=== PATIENT | female | born 1965 | race Caucasian/White ===

== ENCOUNTER → 2017-06-15 | Outpatient (CLI) | payer BC ==
--- NOTE | 2017-06-17 07:15 | MM ---
Reason for exam: screening (asymptomatic). Last mammogram was performed 1 year and 11 months ago. Physical Findings: A clinical breast exam by your physician is recommended on an annual basis and results should be correlated with mammographic findings. MG Screening Mammo w CAD Bilateral CC and MLO view(s) were taken. Prior study comparison: July 15, 2015, bilateral MG screening mammo w CAD. July 12, 2014, bilateral MG screening mammo w CAD. There are scattered fibroglandular densities. There is chronic nodularity in the left breast. No significant changes when compared with prior studies. ASSESSMENT: Negative, BI-RAD 1 RECOMMENDATION: Routine screening mammogram of both breasts in 1 year.
== END ==
LOC: RADMAMWWP 08:27
PROVIDERS: ATTEND Obstetrics & Gynecology
DX: Z12.31 Encounter for screening mammogram for malignant neoplasm of breast (principal); Z80.3 Family history of malignant neoplasm of breast

== ENCOUNTER 2017-07-01 08:22 | Day surgery (SDC) | payer BC ==
[2017-06-29 14:34] VITALS: BMI 33.3
[~2017-07-01 08:22] MED LIST: LACTATED RINGERS 1,000 ML IV SCH
[2017-07-01 08:54] VITALS: TEMP 97.9
[2017-07-01] MEDS ORDERED: LIDOCAINE 1% 20 ML VIAL (10MG/ML) FOR IV START INTRADERMA ONE (09:02)
[2017-07-01] MEDS ORDERED: PROPOFOL 10 MG/ML 20 ML VIAL IV ONE (09:25)
[2017-07-01] MEDS ORDERED: LIDOCAINE 1% INJ 10MG/ML (20 ML MDV) ONE (09:25)
--- NOTE | 2017-07-01 09:51 | P.PCN ---
Date of Procedure: 07/01/17 Procedure(s) Performed: BRIEF HISTORY: Patient is a 52-year-old pleasant white female, scheduled for an elective colonoscopy as a part of screening for colonic neoplasia. PROCEDURE PERFORMED: Colonoscopy with snare polypectomy. PREOPERATIVE DIAGNOSIS: Screening For colon cancer. IV sedation per Anesthesia. PROCEDURE: After informed consent was obtained, the patient, was brought into the endoscopy unit. IV sedation was administered by Anesthesia under continuous monitoring. Digital rectal examination was normal. Initially the Olympus CF- 160 flexible video colonoscope was then inserted in the rectum, gradually advanced into the cecum without any difficulty. Careful examination was performed as the scope was gradually being withdrawn. Ileocecal valve and the appendiceal orifice were visualized and appeared normal. Prep was excellent. Mucosa of the cecum, appeared normal. In the base of the cecum reveals a 5 mm and 7 mm polyp removed by snare polypectomy. In the ascending colon there was a 1 cm sessile polyp removed by snare polypectomy. The rest of the ascending colon, transverse colon, descending colon, sigmoid colon, and rectum appeared normal. In the proximal rectum there was a 5 mm sessile polyp removed by snare polypectomy. Retroflexion was performed in the rectum and no lesions were seen. The patient tolerated the procedure well. IMPRESSION: 5 mm and 7 mm cecal polyp status post polypectomy 1 m flat ascending colon polyp serous was snare polypectomy 5 mm proximal rectal polyp serous was snare polypectomy RECOMMENDATIONS: Findings of this examination were discussed with the patient as well as his family. She was advised to follow with the biopsy results. If the biopsy shows a tubular adenoma, she can have a repeat colonoscopy in 3-5 years.
[2017-07-01 10:06] VITALS: BP 123/78; PULSE 69; RESP 18
== END 2017-07-01 10:34 | disposition home or self-care (01) ==
LOC: ORWHC2ENDO 08:22
PROVIDERS: ATTEND Internal Medicine Gastroenterology
DX: Z12.11 Encounter for screening for malignant neoplasm of colon (principal); D12.2 Benign neoplasm of ascending colon; D12.0 Benign neoplasm of cecum; K62.1 Rectal polyp; Z79.1 Long term (current) use of non-steroidal anti-inflammatories (NSAID); Z79.899 Other long term (current) drug therapy
CPT/HCPCS: 81025; 88305; 45385; J2001; J2704

== ENCOUNTER → 2019-09-21 | Outpatient (CLI) | payer BC ==
[2019-09-21 17:06] LABS: Chol/HDL Ratio 3.98; LDL Cholesterol,Calculated 109.8 mg/dL (0.0-131.0); VLDL Calculation 30.2 mg/dL (5.00-40.00)
== END | disposition home or self-care (01) ==
LOC: LABWHC1 10:06
PROVIDERS: ATTEND Internal Medicine Cardiovascular Disease
DX: E78.5 Hyperlipidemia, unspecified (principal)
CPT/HCPCS: 36415; 80061; 83721

== ENCOUNTER → 2020-06-27 | Outpatient (CLI) | payer BC ==
--- NOTE | 2020-07-01 08:35 | MM ---
Reason for exam: screening (asymptomatic). Last mammogram was performed 3 years ago. History: Patient is postmenopausal. Physical Findings: A clinical breast exam by your physician is recommended on an annual basis and results should be correlated with mammographic findings. MG 3D Screening Mammo W/Cad Bilateral CC and MLO view(s) were taken. Prior study comparison: June 15, 2017, bilateral MG screening mammo w CAD. July 15, 2015, bilateral MG screening mammo w CAD. There are scattered fibroglandular densities. Finding: There is a circumscribed round mass located 13 cm from the nipple in the upper outer quadrant, middle position of the left breast. Increase in size since June 15, 2017 and July 15, 2015. ASSESSMENT: Incomplete: need additional imaging evaluation, BI-RAD 0 RECOMMENDATION: Ultrasound of the left breast. [facility] will attempt to contact patient to return for ultrasound.
== END | disposition home or self-care (01) ==
LOC: RADMAMWWP 11:28
PROVIDERS: ATTEND Family Medicine
DX: Z12.31 Encounter for screening mammogram for malignant neoplasm of breast (principal)
CPT/HCPCS: 77063; 77067

== ENCOUNTER → 2020-07-05 | Outpatient (CLI) | payer BC ==
--- NOTE | 2020-07-09 11:24 | USB ---
Reason for exam: additional evaluation requested from abnormal screening. History: Patient is postmenopausal. Physical Findings: Nurse did not find any significant physical abnormalities on exam. US Breast Workup Limited LT Left limited breast ultrasound including focal area of concern, retroareolar and axilla demonstrates a 0.6 x 0.7 x 0.5cm oval, solid, hyperechoic, benign lesion at 2 o'clock, a 0.7 x 0.4 x 0.6cm intrammary node corresponding to mammogram at 2 o'clock and a 1.2 x 1.4 x 0.9cm oval, lymph node at the axilla, prominent nut nonenlarged. These results were verbally communicated with the patient and result sheet given to the patient on 07/05/20. ASSESSMENT: Benign, BI-RAD 2 RECOMMENDATION: Return to routine screening mammogram schedule for both breasts.
== END | disposition home or self-care (01) ==
LOC: RADUSWWP 10:13
PROVIDERS: ATTEND Family Medicine
DX: R92.8 Other abnormal and inconclusive findings on diagnostic imaging of breast (principal)

== ENCOUNTER 2021-01-29 09:41 | Day surgery (SDC) | payer BC ==
[2021-01-27 09:34] VITALS: BMI 31.8
[2021-01-29 10:21] VITALS: RESP 16; TEMP 98
[2021-01-29] MEDS ORDERED: LIDOCAINE 1% (10MG/ML) FOR IV START INTRADERMA ONE (10:27)
[2021-01-29] MEDS: LACTATED RINGERS 1,000 ML IV SCH ×2 (10:28→10:53)
[2021-01-29] MEDS ORDERED: PROPOFOL 10 MG/ML 20 ML VIAL IV ONE (10:54)
--- NOTE | 2021-01-29 11:17 | P.PCN ---
Date of Procedure: 01/29/21 Procedure(s) Performed: BRIEF HISTORY: Patient is a 55-year-old pleasant white female scheduled for an elective colonoscopy as a part of evaluation of prior history of colon polyps. Her last coloscopy was 3 years ago. PROCEDURE PERFORMED: Colonoscopy with biopsy. PREOPERATIVE DIAGNOSIS: History of colon polyps. IV sedation per Anesthesia. PROCEDURE: After informed consent was obtained, the patient, was brought into the endoscopy unit. IV sedation was administered by Anesthesia under continuous monitoring. Digital rectal examination was normal. Initially the Olympus CF-160 flexible video colonoscope was then inserted in the rectum, gradually advanced into the cecum without any difficulty. Careful examination was performed as the scope was gradually being withdrawn. Ileocecal valve and the appendiceal orifice were visualized and appeared normal. Prep was excellent. Mucosa of the cecum, a scending colon, transverse colon, appeared normal. There was a 2 mm polyp noted in the descending colon that was removed by cold biopsy. Rest of the descending colon, sigmoid colon, and rectum appeared normal. Retroflexion was performed in the rectum and no lesions were seen. The patient tolerated the procedure well. IMPRESSION: 2 mm polyp in the descending colon status post removal by cold biopsy Rest of the colon appeared normal RECOMMENDATIONS: Findings of this examination were discussed with the patient as well as a family. She was advised to follow with the biopsy doesn't have a r epeat surveillance colonoscopy in 5 years..
[2021-01-29 11:43] VITALS: BP 144/72; PULSE 67
== END 2021-01-29 12:09 ==
LOC: ORWHC2ENDO 09:41
PROVIDERS: ATTEND Internal Medicine Gastroenterology
DX: K63.5 Polyp of colon (principal); Z12.11 Encounter for screening for malignant neoplasm of colon; Z86.010 Personal history of colon polyps
CPT/HCPCS: 88305; 45380; J2704

== ENCOUNTER → 2021-04-30 | Outpatient (CLI) | payer BC ==
--- NOTE | 2021-04-30 21:46 | CT ---
EXAMINATION TYPE: CT abdomen w con DATE OF EXAM: 04/30/2021 COMPARISON: None HISTORY: abdominal pain, hernia CT DLP: 983 mGycm Automated exposure control for dose reduction was used. TECHNIQUE: Helical acquisition of images was performed from the lung bases through the top of iliac crest to include entire abdomen. CONTRAST: Performed with Oral Contrast and with IV Contrast, patient injected with 100 mL of Isovue 300. FINDINGS: LUNG BASES: No significant abnormality is appreciated. LIVER/GB: Hepatic steatosis. The gallbladder is unremarkable. The common duct is upper limit of jammie l for size measuring 6 mm. PANCREAS: No significant abnormality is seen. SPLEEN: Nonenlarged. Splenic granulomata. ADRENALS: No significant abnormality is seen. KIDNEYS: Punctate hyperdensity in the interpolar right kidney could represent a tiny nonobstructing s tone or a calcification. No hydronephrosis. BOWEL: Nonenlarged large bowel. No wall thickening or pericholecystic fat stranding. The appendix is unremarkable. LYMPH NODES: No significant abnormality is seen. OSSEOUS STRUCTURES: No significant abnormality is seen. FREE AIR: No free air is visualized. OTHER: None IMPRESSION: 1. Hepatic steatosis. 2. The common duct is upper limit of normal for size measuring 6 mm. Correlate with ultrasound.
== END | disposition home or self-care (01) ==
LOC: RADCTMAIN 16:21
PROVIDERS: ATTEND Family Medicine
DX: K76.0 Fatty (change of) liver, not elsewhere classified (principal); K44.9 Diaphragmatic hernia without obstruction or gangrene
CPT/HCPCS: 74160; Q9967

== ENCOUNTER → 2021-08-01 | Outpatient (CLI) | payer BC ==
--- NOTE | 2021-08-04 20:40 | BD ---
EXAMINATION TYPE: Axial Bone Density DATE OF EXAM: 08/01/2021 COMPARISON: NONE CLINICAL HISTORY: 56 YR OLD FEMALE.....ICD-10 CODE: MENOPAUSAL Height: 63.8 Weight: 195 FRAX RISK QUESTIONS: NOTHING TO NOTE HERE RISK FACTORS HISTORY OF: INJECTIONS INTO LOWER BACK ONLY Family History of Osteoporosis: YES, MOTHER, NO HIP FX Postmenopausal woman: YES, AT AGE 49 YRS OLD Hyperparathyroidism: NO Adrenal Insufficiency: NO MEDICATIONS: Additional Medications: VIT D AND VIT C, WITH MULTIVITAMIN Additional History: RECENT CARPAL TUNNEL SURGERY EXAM MEASUREMENTS: Bone mineral densitometry was performed using the [employer]. Bone mineral density as measured about the Lumbar spine is: ----- L1-L4(G/cm2): 1.076 T Score Values are as follows: ----- L1: -1.2 ----- L2: -1.2 ----- L3: -0.9 ----- L4: -0.4 ----- L1-L4: -0.9 Bone mineral density FIRST DEXA STUDY........BASELINE Bone mineral density about the R hip (g/cm2): 1.208 Bone mineral density about the L hip (g/cm2): 1.264 T Score values are as follows: -----R Neck: 0.3 -----L Neck: 0.3 -----R Total: 1.6 -----L Total: 2.0 Bone mineral density BASELINE STUDY FRAX%s: THERE IS A 4.6% CHANCE FOR A MAJOR OSTEOPOROTIC FX AND A 0.1% FOR HIPS.....PROBABILITY FO R FX IN 10 YRS TIME IMPRESSION: Normal (Values between +1 and -1 indicate normal bone mass). Consider repeating this study in 5 year s or sooner if there is some new clinical indication. NOTE: T-SCORE=SD OF THE YOUNG ADULT MEAN.
== END | disposition home or self-care (01) ==
LOC: RADBDWWP 16:14
PROVIDERS: ATTEND Family Medicine
DX: M85.88 Other specified disorders of bone density and structure, other site (principal); Z78.0 Asymptomatic menopausal state
CPT/HCPCS: 77080

== ENCOUNTER → 2021-08-08 | Outpatient (CLI) | payer BC ==
--- NOTE | 2021-08-11 12:49 | MM ---
Reason for exam: screening (asymptomatic). Last mammogram was performed 1 year and 1 month ago. History: Patient is postmenopausal. Physical Findings: A clinical breast exam by your physician is recommended on an annual basis and results should be correlated with mammographic findings. MG Screening Mammo w CAD Bilateral CC and MLO view(s) were taken. Prior study comparison: June 27, 2020, bilateral MG 3d screening mammo w/cad. June 15, 2017, bilateral MG screening mammo w CAD. The breast tissue is heterogeneously dense. This may lower the sensitivity of mammography. There is no discrete abnormality. No significant changes when compared with prior studies. ASSESSMENT: Negative, BI-RAD 1 RECOMMENDATION: Routine screening mammogram of both breasts in 1 year.
== END | disposition home or self-care (01) ==
LOC: RADMAMWWP 15:13
PROVIDERS: ATTEND Family Medicine
DX: Z12.31 Encounter for screening mammogram for malignant neoplasm of breast (principal); Z78.0 Asymptomatic menopausal state
CPT/HCPCS: 77067

== ENCOUNTER → 2021-12-23 | Outpatient (CLI) | payer BC ==
--- NOTE | 2021-12-23 22:21 | CT ---
EXAMINATION TYPE: CT facial bones wo/w con DATE OF EXAM: 12/23/2021 COMPARISON: CT dated 06/16/2014 HISTORY: Dental abscess since 2021 CT DLP: 1289.6 mGycm Automated exposure control for dose reduction was used. CONTRAST: CT scan of the facial bones is performed without and with IV Contrast, patient injected with 100ml mL of Isovue 300. TECHNIQUE: CT scan of the sinuses is performed without contrast, axial images are obtained, coronal r eformatted images are also reviewed. FINDINGS: Artifacts from dental work. No definite abscess formation identified adjacent to the mandible. Previo us extraction of the left inferior wisdom tooth with expected lucency within the bone at that locatio n. No evidence of bone destruction or signs of osteomyelitis. Prominent bilateral upper cervical and submandibular subcentimeter lymph nodes, nonspecific. Symmetrical unremarkable parotid and submandibular salivary glands. Unremarkable nasopharynx, orophar ynx and hypopharynx. No gross tongue base or floor of the mouth abnormality. Deviated bony nasal sept um convex to the right side. Paradoxical middle turbinates. Clear visualized paranasal sinuses and ma stoid air cells. Unremarkable visualized portion of the brain and orbits. Multilevel upper cervical f acet osteoarthropathy IMPRESSION: Left mandibular lucency at the expected location of extracted left wisdom tooth. No definite adjacent abscess formation, obvious soft tissue swelling, bone destruction or gross signs of acute osteomyeli tis with the limitation of the artifacts from the dental work. Small focus of infection or abscess formation at that location cannot be excluded. Recommend clinical correlation/direct visualization. Further bone scan assessment can be considered if clinically requi red. Other incidental findings as described above.
== END | disposition home or self-care (01) ==
LOC: RADCTMAIN 18:47
PROVIDERS: ATTEND Family Medicine
DX: R93.0 Abnormal findings on diagnostic imaging of skull and head, not elsewhere classified (principal)
CPT/HCPCS: 70488; Q9967

== ENCOUNTER → 2022-02-27 | Outpatient (CLI) | payer BC ==
--- NOTE | 2022-02-28 05:18 | MR ---
EXAMINATION TYPE: MR brain and iac wo/w con DATE OF EXAM: 02/27/2022 COMPARISON: None HISTORY: Trigeminal neuralgia, jaw/facial pain for 6 months after surgery on left bottom molar. CONTRAST: Standard multiplanar, multisequence MRI departmental protocol images were obtained without contrast a nd with 9 mL intravenous Gadavist gadolinium contrast. Diffusion images show no sign of an acute infarct. Ventricles have fairly normal size. There is no ma ss effect or midline shift. No sign of intracranial hemorrhage. Chandra and white matter structures over all fairly normal signal pattern. No evidence of any significant edema. The brainstem is intact. Willis us callosum is intact. Sella turcica appears normal. No evidence of orbital mass. There are a few sca ttered white matter peripheral high signal tiny foci mainly in the left humeral hemisphere that are m easuring up to 4 mm. Portal numbers less than 10. There is no evidence of posterior fossa mass. The internal auditory canals appear normal. Acoustic ne rve and vestibular nerve appear normal. There is no pathologic enhancement in the posterior fossa. There is normal enhancement of the venous sinuses. No pathologic intracranial enhancement. IMPRESSION: Normal MR scan of the posterior fossa. There are a few scattered tiny high signal white matter foci of uncertain and doubtful significance. No evidence of cortical infarct.
== END | disposition home or self-care (01) ==
LOC: RADMRIMAIN 18:27
PROVIDERS: ATTEND Psychiatry & Neurology Neurology
DX: G50.0 Trigeminal neuralgia (principal)
CPT/HCPCS: 70553; A9585

== ENCOUNTER → 2022-08-10 | Outpatient (CLI) | payer BC ==
--- NOTE | 2022-08-11 19:07 | MM ---
Reason for Exam: Screening (asymptomatic). Last screening mammogram was performed 12 month(s) ago. Patient History: Menarche at age 13. First Full-Term at age 22. Postmenopausal. Risk Values: Sheila 5 year model risk: 1.1%. NCI Lifetime model risk: 7.2%. Prior Study Comparison: 06/15/2017 Bilateral Screening Mammogram, [facility]. 06/27/2020 Bilateral Screening Mammogram, [facility]. 08/08/2021 Bilateral Screening Mammogram, [facility]. Tissue Density: There are scattered fibroglandular densities. Findings: Analyzed By CAD. There is a chronic nodularity within the upper outer aspect left breast stable from comparison. Stable nodularities in the posterior right breast. No significant interval changes. No suspicious groups of microcalcifications, spiculated or lobular masses, architectural distortion or other secondary signs of malignancy are mammographically apparent. Overall Assessment: Benign, BI-RAD 2 Management: Screening Mammogram of both breasts in 1 year. A negative mammogram report should not preclude additional follow up of suspicious palpable abnormalities. Patient should continue monthly self breast exam. A clinical breast exam by your physician is recommended on an annual basis and results should be correlated with mammographic findings. Electronically signed and approved by: Gustavo Pinto D.O. Radiologis
== END | disposition home or self-care (01) ==
LOC: RADMAMWWP 15:45
PROVIDERS: ATTEND Family Medicine
DX: Z12.31 Encounter for screening mammogram for malignant neoplasm of breast (principal); Z78.0 Asymptomatic menopausal state
CPT/HCPCS: 77067

== ENCOUNTER → 2023-07-29 | Outpatient (CLI) | payer BC | END | disposition home or self-care (01) | LOC: LABWHC1 14:08 | PROVIDERS: ATTEND Family Medicine | DX: G50.0 Trigeminal neuralgia (principal); K13.79 Other lesions of oral mucosa; R19.7 Diarrhea, unspecified; Z86.19 Personal history of other infectious and parasitic diseases | CPT/HCPCS: 87324 ==

== ENCOUNTER → 2023-08-27 | Outpatient (CLI) | payer BC ==
--- NOTE | 2023-08-31 21:20 | MM ---
Reason for Exam: Screening (asymptomatic). Last mammogram was performed 1 year(s) and 1 month(s) ago. Patient History: Menarche at age 13. First Full-Term at age 22. Postmenopausal. Risk Values: Sheila 5 year model risk: 1.1%. NCI Lifetime model risk: 7.1%. Prior Study Comparison: 06/27/2020 Bilateral Screening Mammogram, [facility]. 08/08/2021 Bilateral Screening Mammogram, [facility]. 08/10/2022 Bilateral MG screening mammo w CAD, [facility]. Tissue Density: There are scattered fibroglandular densities. Findings: Analyzed By CAD. Chronic bilateral nodularity. Unchanged global asymmetry on the right. There is no suspicious group of microcalcifications or new suspicious mass in either breast. Overall Assessment: Benign, BI-RAD 2 Management: Screening Mammogram of both breasts in 1 year. . Patient should continue monthly self-breast exams. A clinical breast exam by your physician is recommended on an annual basis. This exam should not preclude additional follow-up of suspicious palpable abnormalities. Note on Sheila scores and lifetime risk: 1. A Sheila score greater than 3% is considered moderate risk. If this is the case, consider specialist referral to assess eligibility for a risk reducing agent. 2. If overall lifetime risk for the development of breast cancer is 20% or higher, the patient may qualify for future screening with alternating mammogram and breast MRI. Electronically signed and approved by: Anca Garcia M.D. Radiologist
== END | disposition home or self-care (01) ==
LOC: RADMAMWWP 16:21
PROVIDERS: ATTEND Family Medicine
DX: Z12.31 Encounter for screening mammogram for malignant neoplasm of breast (principal); Z78.0 Asymptomatic menopausal state
CPT/HCPCS: 77067

== ENCOUNTER → 2023-09-09 | Outpatient (CLI) | payer BC ==
--- NOTE | 2023-09-11 18:39 | US ---
EXAMINATION TYPE: US abdomen complete DATE OF EXAM: 09/09/2023 COMPARISON: 04/30/2021 CLINICAL INDICATION: Female, 58 years old with history of R10.12 Left upper quadrant pain; Burning pa in LUQ TECHNIQUE: Multiple sonographic images of the abdomen are obtained. FINDINGS: EXAM MEASUREMENTS: Liver Length: 16.2 cm Gallbladder Wall: 0.2 cm CBD: 0.9 cm Spleen: 9.0 cm Right Kidney: 10.3 x 3.9 x 4.2 cm Left Kidney: 12.0 x 5.1 x 4.1 cm GENERATOR ASSEMBLER NOTES: Technical limitations due to large amount of overlying bowel gas Pancreas: head appears slightly heterogenous. Tail obscured by overlying bowel gas Liver: attenuating, heterogeneous Gallbladder: no evidence of stones Evidence for sonographic Jin's sign: no CBD: dilated Spleen: granulomas Right Kidney: no evidence of hydronephrosis Left Kidney: lobulated contour, no evidence of hydronephrosis Upper IVC: wnl Abd Aorta: wnl The liver is homogenous increased echotexture. The intrahepatic portion of the IVC and proximal abdo flores aorta are within normal limits. There is no evidence of cholelithiasis. Common bile duct is u nremarkable. The visualized portions of the pancreas are homogenous. The spleen is unremarkable. K idneys are symmetric and free of hydronephrosis. No renal lesions are seen. IMPRESSION: Steatosis. No evidence for acute process.
== END | disposition home or self-care (01) ==
LOC: RADUSWWP 07:34
PROVIDERS: ATTEND Family Medicine
DX: R10.12 Left upper quadrant pain (principal); K76.0 Fatty (change of) liver, not elsewhere classified
CPT/HCPCS: 76700

== ENCOUNTER 2023-12-15 07:15 | Day surgery (SDC) | payer BC ==
[2023-12-13 09:06] VITALS: BMI 32.8
[~2023-12-15 07:15] MED LIST changes: +LIDOCAINE 1% (10MG/ML) FOR IV START INTRADERMA PRN
[2023-12-15] MEDS: LACTATED RINGERS 1,000 ML IV ONE (07:41)
[2023-12-15 08:33] VITALS: RESP 16; TEMP 97.8
[2023-12-15] MEDS ORDERED: PROPOFOL 10 MG/ML 20 ML VIAL IV ONE (08:44)
--- NOTE | 2023-12-15 08:53 | P.PCN ---
Date of Procedure: 12/15/23 Procedure(s) Performed: BRIEF HISTORY: Patient is a 58-year-old, pleasant, white female scheduled for an upper endoscopy as a part of evaluation of left upper quadrant abdominal pain, epigastric pain, atypical chest pain and burning mouth or the last 1 year duration. His been on Nexium 40 mg daily with no help.. PROCEDURE PERFORMED: Esophagogastroduodenoscopy with biopsy. PREOPERATIVE DIAGNOSIS: Left upper quadrantand epigastric pain/heartburn/burning mouth. IV sedation per anesthesia. PROCEDURE: After informed consent was obtained, the patient was brought into the endoscopy unit. IV sedation was administered by Anesthesia under continuous monitoring. Initially the Olympus GIF-140 video endoscope was inserted into the mouth. Esophagus intubated without any difficulty. It was gradually advanced into the stomach and duodenum and carefully examined. The bulb and the second part of the duodenum appeared normal. The scope at this time was withdrawn to the stomach, adequately insufflated with air, and upon careful examination, mucosa of the antrum,had mild gastritis and biopsies were done from this area. Mucosa of the body, cardia and the fundus appeared normal. The scope was then withdrawn into the esophagus.small sliding type hiatal hernia noted. The GE junction was located at 39 cm from the incisors. The esophagus appeared normal. There were no erosions or ulcerations seen , biopsies were done from the distal esophagusand the patient tolerated the procedure well. IMPRESSION: 1. Mild antral gastritis. 2. Small hiatal hernia but no evidence of esophagitis. RECOMMENDATIONS: The findings of this examination were discussed with the patient as well as his her family. She was advised to follow up the biopsy results.has been on Nexium 40 mg daily for several months with no help and she discontinued the medication a week ago. Recommended a trial of Pepcid 20 mg twice daily.
[2023-12-15 09:16] VITALS: BP 147/86; PULSE 64
== END 2023-12-15 09:35 | disposition home or self-care (01) ==
LOC: ORWHC2ENDO 07:15
PROVIDERS: ATTEND Internal Medicine Gastroenterology
DX: K29.50 Unspecified chronic gastritis without bleeding (principal); K44.9 Diaphragmatic hernia without obstruction or gangrene; K21.9 Gastro-esophageal reflux disease without esophagitis; Z79.899 Other long term (current) drug therapy; Z88.2 Allergy status to sulfonamides; Z98.890 Other specified postprocedural states
CPT/HCPCS: 88305; 43239; J2704

== ENCOUNTER → 2024-08-03 | Outpatient (CLI) | payer OTHER | END | disposition home or self-care (01) | LOC: RADMAMWWP 07:00 | PROVIDERS: ATTEND Obstetrics & Gynecology | DX: Z53.9 Procedure and treatment not carried out, unspecified reason (principal) ==

== ENCOUNTER → 2024-08-31 | Outpatient (CLI) | payer OTHER ==
--- NOTE | 2024-09-04 10:31 | MM ---
Reason for Exam: Screening (asymptomatic). Last screening mammogram was performed 12 month(s) ago. Patient History: Menarche at age 13. First Full-Term at age 22. Postmenopausal. Maternal aunt had breast cancer. Risk Values: Sheila 5 year model risk: 1.2%. NCI Lifetime model risk: 6.9%. Prior Study Comparison: 08/08/2021 Bilateral Screening Mammogram, [facility]. 08/10/2022 Bilateral MG screening mammo w CAD, [facility]. 08/27/2023 Bilateral MG screening mammo w CAD, [facility]. Tissue Density: There are scattered areas of fibroglandular density. Findings: Analyzed By CAD. Chronic nodularity on the left. There is no suspicious group of microcalcifications or new suspicious mass in either breast. Overall Assessment: Benign, BI-RAD 2 Management: Screening Mammogram of both breasts in 1 year. Patient should continue monthly self-breast exams. A clinical breast exam by your physician is recommended on an annual basis. This exam should not preclude additional follow-up of suspicious palpable abnormalities. Note on Sheila scores and lifetime risk: 1. A Sheila score greater than 3% is considered moderate risk. If this is the case, consider specialist referral to assess eligibility for a risk reducing agent. 2. If overall lifetime risk for the development of breast cancer is 20% or higher, the patient may qualify for future screening with alternating mammogram and breast MRI. [facility], , 09/04/2024 10:27 AM. Electronically signed and approved by: Anca Garcia M.D. Radiologist
== END | disposition home or self-care (01) ==
LOC: RADMAMWWP 07:24
PROVIDERS: ATTEND Obstetrics & Gynecology
DX: Z12.31 Encounter for screening mammogram for malignant neoplasm of breast (principal); Z78.0 Asymptomatic menopausal state; Z80.3 Family history of malignant neoplasm of breast; R92.323 Mammographic fibroglandular density, bilateral breasts
CPT/HCPCS: 77063; 77067

== ENCOUNTER → 2024-12-14 | Outpatient (CLI) | payer OTHER ==
--- NOTE | 2024-12-14 08:30 | CT ---
EXAMINATION TYPE: CT sinus wo con DATE OF EXAM: 12/14/2024 7:16 AM COMPARISON: . CLINICAL INDICATION: Female, 59 years old with history of J32.0 CHRONIC MAXILLARY SINUSITIS; , CHRONI C MAXILLARY SINUSITIS, LEFT SIDE WORSE TECHNIQUE: CT of the paranasal sinuses without IV contrast. Coronal and sagittal reconstructions perf ormed. CT DLP: 628.70 mGycm, Automated exposure control for dose reduction was used. FINDINGS: PARANASAL SINUSES: There is trace mucosal thickening along the floors of the maxillary sinuses and scattered trace mucos al thickening ethmoid air cells. Single frontal view partial opacification superior aspect of the right sphenoid sinus. Frontal sinus is well-pneumatized. There is no air-fluid level. Reactive stefanie- osteogenesis is not seen. There is no destruction of the osseous max of the paranasal sinuses. THE NASAL CAVITY: The osteomeatal complexes are patent. There is rightward nasal septal deviation with a small left-sided jerod bullosa. The imaged brain and orbits are normal in appearance. Mastoid air cells and middle ear cavities are well pneumatized. Reformatted images confirm above findings. IMPRESSION: 1. Trace mucosal thickening floors of the maxillary sinuses and within the ethmoid air cells. 2. Small amount of frothy opacification within the superior aspect of the right sphenoid sinus may re flect an acute sinusitis. 3. Rightward nasal septal deviation with a small left-sided conchal bullosa. [facility], Workstation: [id number] MediaSHELBY, 12/14/2024 8:28 AM
== END | disposition home or self-care (01) ==
LOC: RADCTMAIN 06:54
PROVIDERS: ATTEND Otolaryngology
DX: J34.2 Deviated nasal septum (principal); J32.0 Chronic maxillary sinusitis; J34.89 Other specified disorders of nose and nasal sinuses
CPT/HCPCS: 70486